=== PATIENT | female | born 1960 | race Caucasian/White ===

== ENCOUNTER 2021-09-12 16:37 | Emergency (ER) | payer OTHER ==
[~2021-09-12] VITALS: Ht 160 cm; Wt 117.9 kg
[~2021-09-12 16:37] MED LIST: CATAFLAM50 MG; COZAAR50 MG; PREVACID30 MG
[2021-09-12] MEDS ORDERED: SYNTHROID75 MCG PO (16:54)
[2021-09-12] MEDS ORDERED: NEURONTIN800 MG PO (16:54)
[2021-09-12] MEDS ORDERED: ESTAZOLAM2 MG (16:55)
[2021-09-12] MEDS ORDERED: SINGULAIR5 MG PO (16:55)
[2021-09-12] MEDS ORDERED: CYMBALTA60 MG PO (16:55)
[2021-09-12] MEDS ORDERED: HYZAAR 50-12.51 EACH PO (16:55)
[2021-09-12] MEDS ORDERED: GLUMETZA500 MG PO (16:56)
[2021-09-12] MEDS ORDERED: CLONAZEPAM2 M1 PO (16:56)
== END 2021-09-12 23:33 | disposition home or self-care (01) ==
LOC: ER 16:37
DX: N23 Unspecified renal colic (principal); N20.0 Calculus of kidney; I10 Essential (primary) hypertension; E11.9 Type 2 diabetes mellitus without complications; Z88.2 Allergy status to sulfonamides